=== PATIENT | male | born 1955 | race African-American/Black ===

== ENCOUNTER 2021-02-23 13:20 | Emergency (ER) | payer BC ==
[~2021-02-23] VITALS: Ht 185.4 cm; Wt 119.0 kg
[2021-02-23] MEDS ORDERED: TETANUS, DIPHTHERIA, PERTUSSIS VAC/PF 0.5ML (>10YR OLD) IM ONE (13:30)
[2021-02-23] MEDS ORDERED: LIDOCAINE HCL/PF 1% 10 MG/ML 5ML VIAL INFIL ONE (13:30)
[2021-02-23] MEDS ORDERED: BACITRACIN ZINC OINT UDPKT TOP ONE (13:30)
[2021-02-23] MEDS ORDERED: LIDOCAINE HCL 1% 20ML VIAL (Pyxis) INJ INL SCH (14:00)
[2021-02-23] MEDS ORDERED: BO1 TP (15:42)
[2021-02-23 16:00] VITALS: BP 151/90
== END 2021-02-23 16:08 | disposition home or self-care (01) ==
LOC: ER 13:20
DX: S61.213A Laceration without foreign body of left middle finger without damage to nail, initial encounter (principal); W45.8XXA Other foreign body or object entering through skin, initial encounter; Y93.89 Activity, other specified; Y92.89 Other specified places as the place of occurrence of the external cause; Y99.8 Other external cause status
CPT/HCPCS: 12001; 73130; 73140; 90471; 90715; 99284; A4217; J3490; Z7610